=== PATIENT | male | born 1955 | race Caucasian/White ===

== ENCOUNTER 2017-03-06 14:00 | Inpatient (IN) | payer OTHER ==
[2017-03-06 14:39] LABS: Hematocrit 32.8 % (42.0-52.0); Hemoglobin 11.4 gm/dL (13.5-18.0); Mean Cell Volume 78.7 fl (78-100); Mean Corpuscular Hemoglobin 27.3 pg (27-31); Mean Corpuscular Hgb Conc 34.8 g/dl (32-36); Mean Platelet Volume 9.4 fl (6.0-9.5); Neutrophil # 17.6 K/mm3 (1.3-6.0); Neutrophil % 87.5 % (42-75.0); Platelet Count 400 K/mm3 (150-450); Red Blood Count 4.17 M/mm3 (4.7-6.0); Red Cell Distribution Width 13.7 % (11.5-14.0); White Blood Count 20.1 K/mm3 (4.0-10.5)
[2017-03-06 14:53] LABS: ALT 34 U/L (19-67); AST 42 U/L (0-48); Albumin * 2.7 gm/dl (3.4-5.0); Alkaline Phosphatase * 359 U/L (50-170); Anion Gap 14.4 mmol/L (6.8-13.8); BUN/Creatinine Ratio 17.6 (9.0-21.6); Bilirubin, Total 0.4 mg/dL (0.0-1.1); Blood Urea Nitrogen 43 mg/dL (6-23); Ca. Corrected For Albumin 9.5 mg/dL (8.4-10.2); Calcium * 8.8 mg/dL (7.9-10.9); Carbon Dioxide 27.1 mmol/L (24-32.6); Chloride 89 mmol/L (97-106); Glucose * 107 mg/dL (70-110); Potassium 4.5 mmol/L (3.4-4.6); Sodium 126 mmol/L (132-142); Total Protein 7.2 gm/dL (6.2-8.2)
[2017-03-06 14:56] LABS: Troponin I Less than 0.017 ng/ml (0.00-0.10)
[2017-03-06] MEDS ORDERED: ALBUTEROL SULFATE/IPRATROPIUM 3 ML NEBU IH ONE ×2 (14:59→15:02)
[2017-03-06] MEDS ORDERED: predniSONE 20 MG TABLET PO ONE (14:59)
[2017-03-06] MEDS ORDERED: predniSONE 20 MG TABLET ONE (15:02)
--- NOTE | 2017-03-06 16:04 | ERNOTE ---
Dyspnea - General Presenting Symptoms: shortness of breath, wheezing, other - fever and cough Time Seen by Provider: 03/06/17 14:20 Exam Limitations: no limitations - Immun/Allergies/Home Medications Immunizations: IMMUNIZATION HX Immunizations Up to Date Yes History of Influenza Vaccine Yes Hx Pneumococcal Vaccination No Allergies/Adverse Reactions: Allergies pneumonia vaccine Allergy (Severe, Uncoded 03/06/17 14:12) anaphalaxis Home Medications: HOME MEDICATIONS Cyclobenzaprine HCl [Flexeril] 5 mg PO BID PRN 02/06/16 [Last Taken 02/06/16 16: 00] Baclofen 20 mg PO TID PRN 02/07/16 [Last Taken Unknown] Rosuvastatin Calcium [Crestor] 1 tab PO HS 02/07/16 [Last Taken 02/05/16 21:00] amLODIPine BESYLATE [Norvasc] 1 tab PO HS 02/07/16 [Last Taken 02/05/16 21:00] buPROPion HCL [Wellbutrin Xl] 150 mg PO DAILY 02/07/16 [Last Taken 02/05/16 09: 00] - History of Present Illness Narrative: Patient states that for the past 3-4 days he has been having chills, sweats and shaking-like episodes at home that come and go. He states that he feels weak and somewhat washed out. Severity: moderate Treatment ACTIVITIES MANAGER: by patient Initiating event: Reports: unknown Frequency of episodes: Reports: no prior episodes Associated Symptoms-Dyspnea: Reports: fever/chills, cough, wheezing Review of Systems - Review of Systems Constitutional: Present: See HPI, fever, chills EYE: Present: no symptoms reported ENT: Present: no symptoms reported Respiratory: Present: shortness of breath, cough, wheezing Cardiology: Present: no symptoms reported Gastrointestinal/Abdominal: Present: no symptoms reported Genitourinary: Present: no symptoms reported Musculoskeletal: Present: no symptoms reported Skin: Present: no symptoms reported Neurological: Present: no symptoms reported Endocrine: Present: no symptoms reported Hematologic/Lymphatic: Present: no symptoms reported Psych: Present: no symptoms reported - Patient's Past Medical History Patient History - Medical: No pertinent hx, Anemia, Depression, Other Patient History - Cardiac/Respiratory: Hypertension, Hyperlipidemia Patient History - Cancer: No Hx of Cancer Patient History - Surgical Procedures: Back Surgery, Other - splenectomy Patient History - Other: None - Family History Mother Family History - Medical: Family History - Cardiac/Respiratory: Hypertension Father Family History - Medical: Family History - Cardiac/Respiratory: Hypertension - Social History Living Situations: home Psych History: No pertinent hx Smoking Status: Former smoker Alcohol Use: none Drug Use: none - Immunizations Immunizations Up to Date: Yes Hx Pneumococcal Vaccination: No History of Influenza Vaccine: Yes Physical Exam - Physical Exam General Appearance: Present: wd/wn, alert, moderate distress Eye Exam: Normal inspection: bilateral, PERRL: bilateral Ears, Nose, Throat: Present: normal ENT inspection, H, normal pharynx Neck: Present: normal inspection, nontender Respiratory: Present: normal breath sounds, no accessory muscle use, chest nontender, rales - in the left lower lobe, wheezing, pleural rub Cardiovascular/Chest: Present: regular rate, rhythm, no murmur, normal peripheral pulses Gastrointestinal/Abdominal: Present: normal bowel sounds, nontender, nondistended, soft, no organomegaly Rectal Exam: Present: deferred Back Exam: Present: normal inspection, normal range of motion Extremity Exam: Present: normal inspection, non-tender, no edema, normal range of motion Neurological Exam: Present: alert, oriented, normal mood/affect Skin Exam: Present: normal color, warm/dry Lymphatic Exam: Present: no adenopathy ED Progress - Results and Orders Patient's Lab Results:: I have reviewed the patient's lab results. - Vital Signs Patient's Vital Signs:: I have reviewed the patient's vital signs. Vital Signs: Vital Signs 03/06/17 03/06/17 03/06/17 14:07 15:04 15:10 Temperature 38.4 C H 38.4 C H Pulse Rate 98 96 90 Respiratory 21 H 22 H 20 Rate Blood Pressure 196/81 196/81 O2 Sat by Pulse 93 90 90 Oximetry - X-Ray X-Ray #1 X-Ray: chest Interpretation: Reviewed by me - Progress/Reassessment Chief Complaint: Dyspnea Plan - Plan Plan: Patient is somewhat worrisome because of both the splenectomy and the fact that he is having chills, sweating and rigor-like activity. Given that the patient has a 20,000 white count and a left lower lobe pneumonia I believe he merits admission certainly in light of his being hypoxic with sats in the 88-89% initially. Blood cultures were taken and 2 g Rocephin have been ordered for the patient and he'll be admitted to the hospital for further aggressive therapy. Departure Clinical Impression: Hypoxia Pneumonia Qualifiers: Pneumonia type: due to unspecified organism Laterality: left Lung location: lower lobe of lung Qualified Code(s): J18.1 - Lobar pneumonia, unspecified organism - Departure Disposition: [facility] Condition: Fair
[2017-03-06] MEDS ORDERED: NORMAL SALINE 1,000 ML IV ONE ×2 (16:17→18:18)
[2017-03-06] MEDS: AZITHROMYCIN 500 MG in DEXTROSE 5 % IN WATER 250 ML IV SCH ×2 (17:26)
[2017-03-06] MEDS: ALBUTEROL SULFATE/IPRATROPIUM 3 ML NEBU IH SCH (18:58)
--- NOTE | 2017-03-06 19:43 | HP ---
Chief Complaint - Chief Complaint Date of Service: 03/06/17 Time of Service: 19:41 Chief Complaint: SOB/chills/cough History of Present Illness: Pt is a 61 year old male patient of Dr. Kerr who presented to the ER today with complaints of 3-4 days of having chills, sweats, and rigors that come and go. Past medical history is significant for: splenectomy, depression, anemia, HTN, and HLD. He states that he feels weak and somewhat washed out also endorses a cough without any sputum production. Has been taking Aleve at home with occasional relief of symptoms. Denies any recent travel, sick contacts, or other associated symptoms. In the ER he was found to be hypoxic at 88% on RA, chest xray revealed right lower lobe infiltrate. Due to his history of splenectomy, current leukocytosis, and hypoxemia he will be admitted to in patient for further care including IV antibiotics, hemodynamic and laboratory monitoring. Laboratory values on admission were as followed: Laboratory Tests 03/06/17 14:25 WBC 20.1 H Hgb 11.4 L Hct 32.8 L Plt Count 400 pCO2 pO2 HCO3 ABG pH ABG O2 Sat (Measured) Sodium 126 L Potassium 4.5 Chloride 89 L Carbon Dioxide 27.1 Anion Gap 14.4 H BUN 43 H Creatinine 2.44 H Random Glucose 107 Lactic Acid, Venous 0.9 AST 42 ALT 34 Alkaline Phosphatase 359 H Troponin I Less than 0.017 03/06/17 15:47 WBC Hgb Hct Plt Count pCO2 23.7 L pO2 65.1 L HCO3 20.0 L ABG pH 7.54 H ABG O2 Sat (Measured) 95.3 Sodium Potassium Chloride Carbon Dioxide Anion Gap BUN Creatinine Random Glucose Lactic Acid, Venous AST ALT Alkaline Phosphatase Troponin I - Patient's Past Medical History Patient History - Medical: Anemia, Depression, Other Patient History - Cardiac/Respiratory: Hypertension, Hyperlipidemia Patient History - Cancer: No Hx of Cancer Patient History - Surgical Procedures: Back Surgery - 2016, Other - splenectomy Patient History - Other: None - Family History Mother Family History - Medical: Family History - Cardiac/Respiratory: Hypertension Family History - Cancer: Lung Father Family History - Medical: Family History - Cardiac/Respiratory: COPD, Hypertension, Home O2 Use - Social History Living Situations: spouse Abuse History: No History of abuse Psych History: Hx of Depression Smoking Status: Former smoker Have you smoked in the past 12 months: No Do you dip or chew tobacco: No Alcohol Use: other - quit in 1994 Drug Use: none - Immunizations Immunizations Up to Date: Yes Hx Pneumococcal Vaccination: No History of Influenza Vaccine: Yes Review Of Systems (GEN) - Review of Systems Generalized/Overall Review: Present: Chills, Diaphoresis EENTM: Present: No Symptoms Reported Respiratory: Present: Cough, Shortness of Breath Cardiac: Present: No Symptoms Reported Abdominal: Present: No Symptoms Reported Genitourinary: Present: No Symptoms Reported Musculoskeletal: Present: No Symptoms Reported Neurological: Present: No Symptoms Reported Skin: Present: No Symptoms Reported Endocrine: Present: Intolerance to Cold, Intolerance to Heat Immunizations: IMMUNIZATION HX Immunizations Up to Date Yes History of Influenza Vaccine Yes Hx Pneumococcal Vaccination No Allergies/Adverse Reactions: Allergies Allergy/AdvReac Type Severity Reaction Status Date / Time pneumonia vaccine Allergy Severe Uncoded 03/06/17 17:43 Home Medications: HOME MEDICATIONS Rosuvastatin Calcium [Crestor] 1 tab PO HS 02/07/16 [Last Taken 02/05/16 21:00] amLODIPine BESYLATE [Norvasc] 1 tab PO HS 02/07/16 [Last Taken 02/05/16 21:00] buPROPion HCL [Wellbutrin Xl] 150 mg PO DAILY 02/07/16 [Last Taken 02/05/16 09: 00] Exam - Exam Vital Signs: Vital Signs - Last Taken Temp 37.3 C 03/06/17 17:45 Pulse 76 03/06/17 18:58 Resp 20 03/06/17 18:58 BP 127/68 03/06/17 17:45 Pulse Ox 93 2L NC 03/06/17 18:58 Constitutional: Present: Alert, Oriented x3, Cooperative, No distress ENT Exam: Present: hearing grossly normal Eye Exam: bilateral eye: normal inspection, PERRL Back Exam: Present: normal inspection, no CVA tenderness, no vertebral tenderness Respiratory: Present: chest non-tender, no respiratory distress, no accessory muscle use, decreased breath sounds, wheezing Cardiovascular/Chest: Present: normal peripheral pulses, regular rate, rhythm, no chest tenderness, no edema, no gallop, no JVD, no murmur Peripheral Pulses: dorsalis-pedis (R): 2+, dorsalis-pedis (L): 2+, radial (R): 2 +, radial (L): 2+ Abdomen: Present: Normal bowel sounds, soft, nontender, nondistended, no rebound tenderness, no hepatospenomegaly, no masses Extremity: Present: normal range of motion, non-tender, normal inspection, no pedal edema, no calf tenderness, normal capillary refill Skin Exam: Present: normal color, warm/dry, no cyanosis Lymphatic: Present: no adenopathy Neurologic: Present: alert, normal mood/affect, oriented x 3 Appearance: Present: appropriate appearance, appropriate insight, neat, no memory impairment Eye contact: Present: cooperative, good eye contact, normal speech Thoughts: Present: normal thought pattern, no apparent hallucination Diagnostic Studies: Laboratory Tests 03/06/17 03/06/17 03/06/17 14:25 14:25 14:25 WBC 20.1 H Hgb 11.4 L Hct 32.8 L Plt Count 400 pCO2 pO2 HCO3 ABG pH Sodium 126 L Potassium 4.5 Chloride 89 L Carbon Dioxide 27.1 Anion Gap 14.4 H BUN 43 H Creatinine 2.44 H Est GFR (Non-Af Amer) 29 L Lactic Acid, Venous 0.9 Total Bilirubin 0.4 AST 42 ALT 34 Alkaline Phosphatase 359 H Troponin I Less than 0.017 Albumin 2.7 L Influenza Type A Ag Influenza Type B Ag 03/06/17 03/06/17 14:35 15:47 WBC Hgb Hct Plt Count pCO2 23.7 L pO2 65.1 L HCO3 20.0 L ABG pH 7.54 H Sodium Potassium Chloride Carbon Dioxide Anion Gap BUN Creatinine Est GFR (Non-Af Amer) Lactic Acid, Venous Total Bilirubin AST ALT Alkaline Phosphatase Troponin I Albumin Influenza Type A Ag Negative Influenza Type B Ag Negative Chest xray 03/06/17 LLL basilar consolidation with small left-sided pleural effusion Assessment/Plan - Assessment/Plan (1) Hypoxia Assessment: Chest xray with evidence of LLL consolidation and small pleural effusion, leukocytosis noted at 20K. Treatment as below in Pneumonia. Problem: Acute (2) Pneumonia Assessment: Chest xray showing LLL basilar consolidation with small left-sided pleural effusion resulting in hypoxemia. Continue IV antibiotics, PRN and scheduled nebulizers, pulmonary toileting, and supplemental oxygen. -maintain sats >92% -Duonebs scheduled and PRN -IS and cornet -Azythromycin IV -Pending BC and sputum culture -Urine for strep pneumonia -Recheck labs in am Problem: Acute Qualifiers: Pneumonia type: due to unspecified organism Laterality: left Lung location: lower lobe of lung Qualified Code(s): J18.1 - Lobar pneumonia, unspecified organism (3) HLD (hyperlipidemia) Assessment: Continue Crestor Problem: Chronic (4) HTN (hypertension) Assessment: Continue Norvasc as prescribed at home. VS Q6H Problem: Chronic (5) Depression Assessment: Continue wellbutrin as prescribed at home Problem: Chronic
[2017-03-06] MEDS: ROSUVASTATIN CALCIUM 10 MG TABLET PO SCH (20:32)
[2017-03-06] MEDS: amLODIPine BESYLATE 5 MG TABLET PO SCH (20:32)
[2017-03-06] MEDS: ENOXAPARIN SODIUM 30 MG/0.3 ML SYRG SC SCH (20:32)
[2017-03-07] MEDS: ALBUTEROL SULFATE/IPRATROPIUM 3 ML NEBU IH SCH ×4 (02:25→22:48)
[2017-03-07 06:05] LABS: Hematocrit 35.7 % (42.0-52.0); Hemoglobin 11.8 gm/dL (13.5-18.0); Mean Cell Volume 79.9 fl (78-100); Mean Corpuscular Hemoglobin 26.4 pg (27-31); Mean Corpuscular Hgb Conc 33.1 g/dl (32-36); Mean Platelet Volume 9.4 fl (6.0-9.5); Platelet Count 454 K/mm3 (150-450); Red Blood Count 4.47 M/mm3 (4.7-6.0); Red Cell Distribution Width 13.6 % (11.5-14.0)
[2017-03-07 06:12] LABS: Total Cells Counted 100
[2017-03-07 06:24] LABS: Albumin * 2.4 gm/dl (3.4-5.0); Anion Gap 13.8 mmol/L (6.8-13.8); BUN/Creatinine Ratio 17.2 (9.0-21.6); Bilirubin, Total 0.2 mg/dL (0.0-1.1); Ca. Corrected For Albumin 10.3 mg/dL (8.4-10.2); Calcium * 9.3 mg/dL (7.9-10.9); Carbon Dioxide 24.7 mmol/L (24-32.6); Potassium 4.5 mmol/L (3.4-4.6); Total Protein 7.4 gm/dL (6.2-8.2)
[2017-03-07 06:54] LABS: Band 17 % (0-2.0); Lymphocyte 3 % (20-51); Monocyte 3 % (0-9); Neutrophil 77 % (42-75); Neutrophil # 20.8 K/mm3 (1.3-6.0); Poikilocytosis 1+
[2017-03-07 06:55] LABS: Dohle Bodies 1+; Platelet Estimate Increased (NORMAL); Toxic Granulation 2+
[2017-03-07] MEDS ORDERED: buPROPion HCL 150 MG TAB.SR.24H PO SCH (09:00)
--- NOTE | 2017-03-07 14:16 | PN ---
Subjective - Date and Time Seen Date: 03/07/17 Time: 14:10 Subjective Narrative: patient seen at 0820 hrs. Patient feels better. Weaned off oxygen. Feels ready to go home. Ambulating well. Appetite good . no cough. Objective - Review of Systems Generalized/Overall Review: Denies: Weakness, Chills, Fever, Malaise Respiratory: Denies: Cough, Shortness of Breath Cardiac: Denies: Chest Pain, Edema, Palpitations - Vitals Vitals: Vital Signs Temp 36.4 C L 03/07/17 11:22 Pulse 67 03/07/17 11:22 Resp 16 03/07/17 11:22 BP 125/62 03/07/17 11:22 Pulse Ox 92 03/07/17 11:22 - Abnormal Lab Findings Abnormal Lab Findings: Laboratory Tests 03/06/17 03/07/17 14:25 05:55 WBC 20.1 H 27.0 H D Hgb 11.4 L 11.8 L Hct 32.8 L 35.7 L Plt Count 400 454 H Neutrophils % (Manual) 77 H Band Neuts % (Manual) 17 H 03/06/17 03/07/17 14:25 05:55 Plasma Sodium 126 L 133 Potassium 4.5 4.5 Chloride 89 L 98 Carbon Dioxide 27.1 24.7 BUN 43 H 41 H Creatinine 2.44 H 2.39 H Est GFR (Non-Af Amer) 29 L 30 L Alkaline Phosphatase 359 H 363 H - EKG/Xray Findings Interpretation: Reviewed by me - Exam Constitutional: Present: Obese - alert and oriented x3, in NAD on RA Neck: Present: normal inspection, trachea midline Respiratory: Present: decreased breath sounds - all throughtout lungs. Absent: accessory muscle use Cardiovascular/Chest: Present: regular rate, rhythm. Absent: tachycardia Abdomen: Present: Normal bowel sounds, soft, nontender, obese Extremity: Present: normal inspection, no pedal edema Skin Exam: Present: normal color, warm/dry Eye contact: Present: cooperative, good eye contact, normal speech Assessment/Plan Plan Narrative: 1. Left lower lobe pneumonia: Patient presented with fever, chills , myalgias and hypoxia of 85% on RA. Currently on ceftriaxone 2 g IV daily and azithromycin 500 mg IV daily. Blood cultures are pending. Urine for strep pneumoniae and Legionella pending. Given prednisone 60 mg PO in ER. 2. S/P splenectomy: Due to for a blunt force trauma at place of work approximately 5 years ago. History of having a reaction to pneumococcal vaccine given at [facility] 3. CKD stage III/1V: BUN/CR 30/1.4 with GFR 56 ml/min [ 07/29/2013]; 34/2.29 GFR 31ml/min [ 11/15/16]. no H/O prior work up. 4. Other chronic medical conditions: HTN, anxiety and depression, HLD, obesity[BMI 33.5], h/o prior tobacco abuse reviewed and stable.
[2017-03-07] MEDS: AZITHROMYCIN 500 MG in DEXTROSE 5 % IN WATER 250 ML IV SCH ×2 (16:28)
[2017-03-07] MEDS: ENOXAPARIN SODIUM 30 MG/0.3 ML SYRG SC SCH (20:10)
[2017-03-07] MEDS: amLODIPine BESYLATE 5 MG TABLET PO SCH (20:11)
[2017-03-07] MEDS: ROSUVASTATIN CALCIUM 10 MG TABLET PO SCH (20:11)
[2017-03-08] MEDS: ALBUTEROL SULFATE/IPRATROPIUM 3 ML NEBU IH SCH (06:03)
[2017-03-08 06:19] LABS: Hematocrit 33.3 % (42.0-52.0); Hemoglobin 11.3 gm/dL (13.5-18.0); Mean Cell Volume 79.5 fl (78-100); Mean Corpuscular Hgb Conc 33.9 g/dl (32-36); Mean Platelet Volume 9.7 fl (6.0-9.5); Platelet Count 507 K/mm3 (150-450); Red Blood Count 4.19 M/mm3 (4.7-6.0); Red Cell Distribution Width 13.9 % (11.5-14.0); White Blood Count 22.9 K/mm3 (4.0-10.5)
[2017-03-08 06:23] LABS: Albumin * 2.4 gm/dl (3.4-5.0); Anion Gap 15.1 mmol/L (6.8-13.8); BUN/Creatinine Ratio 20.5 (9.0-21.6); Bilirubin, Total 0.2 mg/dL (0.0-1.1); Ca. Corrected For Albumin 10.1 mg/dL (8.4-10.2); Calcium * 9.1 mg/dL (7.9-10.9); Carbon Dioxide 25.1 mmol/L (24-32.6); Potassium 4.2 mmol/L (3.4-4.6); Total Protein 7.1 gm/dL (6.2-8.2)
[2017-03-08 06:39] LABS: Monocyte 2 % (0-9); Neutrophil 75 % (42-75)
[2017-03-08 06:41] LABS: Band 14 % (0-2.0); Howell-Jolly Bodies 1+; Immature Granulocyte 1 (0-1); Lymphocyte 8 % (20-51); Neutrophil # 17.2 K/mm3 (1.3-6.0); Platelet Estimate Increased (NORMAL); Polychromasia 1+; Total Cells Counted 100
--- NOTE | 2017-03-08 10:46 | DS ---
(1) Left lower lobe pneumonia Problem: Acute Qualifiers: Pneumonia type: due to unspecified organism Qualified Code(s): J18.1 - Lobar pneumonia, unspecified organism (2) Status post splenectomy Diagnosis(s): in 2011 due to blunt force trauma Problem: Chronic (3) CKD (chronic kidney disease) Diagnosis(s): III/IV Problem: Chronic (4) HLD (hyperlipidemia) Problem: Chronic (5) HTN (hypertension) Diagnosis(s): increase crestor from 10 mg to 20 mg PO daily for LDL 104 mg/dl. Problem: Chronic Qualifiers: Hypertension type: unspecified Qualified Code(s): I10 - Essential (primary ) hypertension Description of Stay: DATE OF ADMISSION: 03/06/17. DATE OF DISCHARGE: 03/08/17. DIAGNOSTICS: NONE. DISCHARGE SUMMARY : Kwaku is a 61 year old male patient of Dr. Kerr who has a history of splenectomy, CKD- stage III/IV, depression, anemia, HTN, and HLD. He presented to the ER on 03/06/17 with complaints of chills, sweats, rigors, and cough for 3 days. In the ER he was found to be hypoxic at 88% on RA and chest xray showed left lower lobe infiltrate. He was then admitted for IV antibiotics and and laboratory monitoring. Patient was given CTX 2g IV daily and azithromycin 500 mg IV daily after blood cultures were done Patient showed significant improvement the next day. WBC remained elevated on 03/07/17 mostly due to the fact that he was given oral prednisone 60 mg in ER. Patient was discharged in a stable condition today because he was clinically better. Patient to receive 2 days IV antibiotics through the annex. [ to complete a total of five days]. [Total time spent in discussing options, prognosis and examining the patient 15 minutes. Total time spent in reconciliation of medications, preparation and dictation of discharge summary 20 minutes. Total time spent 35 minutes. Procedures Performed: none Results and Findings: Laboratory Tests 03/06/17 03/07/17 03/08/17 14:25 05:55 07:00 WBC 20.1 H 27.0 H D 22.9 H Hgb 11.4 L 11.8 L 11.3 L Hct 32.8 L 35.7 L Plt Count 400 454 H 507 H Neutrophils % (Manual) 77 H 75 Band Neuts % (Manual) 17 H 14 H 03/06/17 03/07/17 03/08/17 14:25 05:55 06:00 Plasma Sodium 126 L 133 137 Potassium 4.5 4.5 4.2 Chloride 89 L 98 101 Carbon Dioxide 27.1 24.7 25.1 BUN 43 H 41 H 46 H Creatinine 2.44 H 2.39 H 2.24 H Est GFR (Non-Af Amer) 29 L 30 L 32 L Random Glucose 107 146 H D 98 D Calcium Adj for Albumin 9.5 10.3 H 10.1 Total Bilirubin 0.4 0.2 0.2 AST 42 32 33 ALT 34 43 48 Alkaline Phosphatase 359 H 363 H 313 H Total Protein 7.2 7.4 7.1 Albumin 2.7 L 2.4 L 2.4 L 03/06/17 03/06/17 14:25 14:35 Lactic Acid, Venous 0.9 Troponin I Less than 0.017 Influenza Type A Ag Negative Influenza Type B Ag Negative CXR 03/06/2017: Impression: 1. Left lower lobe basilar consolidation with small left-sided pleural effusion noted, most likely pneumonia. Recommend radiographic follow-up to document resolution as underlying pulmonary mass could not be entirely ruled out. 2. Mild cardiomegaly. Discharge Disposition: Home self care Disposition: Home self-care Condition: Undetermined Discharge Diet: Low salt, Low fat/chol, High Fiber Referrals: Eric Kerr MD [Primary Care Provider] - Problem Oriented Discharge Instructions to Patient/Family: Community-Acquired Pneumonia, Adult, [id number] Additional Patient Instructions (free text): Patient to get IV antibiotics through the annex from 03/09/17 for 2 days at 11: 30am. horse farm manager to arrange it. Follow up with Dr. Kerr in 10 days on 03-21-17 @ 10:45 am., earlier if s/s worsen. Repeat Chest Xray in 4-6 weeks. Follow up with Nephrology after US of kidneys, spep upep etc are done. Avoid all NSAIDS. Appointment for [facility] Retroperitoneal Complete is on 03-29-17 @ 8:00am. Prescriptions (Any new or edited meds): Azithromycin [Zithromax] 500 mg IV DAILY #2 vial Ceftriaxone Sodium [Ceftriaxone] 2 gm IV DAILY #2 vial.port Rosuvastatin Calcium [Crestor] 20 mg PO DAILY #90 tablet Complete Home Medications List: Complete Home Medication List: amLODIPine BESYLATE [Norvasc] 1 tab PO HS 02/07/16 buPROPion HCL [Wellbutrin Xl] 150 mg PO DAILY 02/07/16 Azithromycin [Zithromax] 500 mg IV DAILY #2 vial 03/08/17 Ceftriaxone Sodium [Ceftriaxone] 2 gm IV DAILY #2 vial.port 03/08/17 Rosuvastatin Calcium [Crestor] 20 mg PO DAILY #90 tablet 03/08/17 Amb Orders for Discharge: Microalbumin, Random Urine Time Frame: 2 Weeks, Location: Determined By Patient Protein Elect Random Urine Time Frame: 2 Weeks, Location: Determined By Patient Protein Electrophoresis Serum Time Frame: 2 Weeks, Location: Determined By Patient Chest PA & Lateral * Time Frame: 04/12/17, Location: Determined By Patient US Retroperitoneal Complete * Time Frame: 3 Weeks, Location: Determined By Patient
[2017-03-08] MEDS: AZITHROMYCIN 500 MG in DEXTROSE 5 % IN WATER 250 ML IV SCH ×2 (11:14)
[2017-03-08 14:34] VITALS: BP 137/83
[2017-03-08] MEDS ORDERED: buPROPion HCL 150 MG TAB.SR.24H PO SCH (21:00)
== END 2017-03-08 14:47 | disposition home or self-care (01) | DRG 195 ==
LOC: ER 14:00 → MS 15:55
PROVIDERS: ADMIT Internal Medicine; ATTEND Internal Medicine
PROC: 4A033R1 Measurement of Arterial Saturation, Peripheral, Percutaneous Approach (ICD-10-PCS; principal; 2017-03-06)
DX: J18.1 Lobar pneumonia, unspecified organism (principal); R09.02 Hypoxemia; E78.5 Hyperlipidemia, unspecified; F32.9 Major depressive disorder, single episode, unspecified; I12.9 Hypertensive chronic kidney disease with stage 1 through stage 4 chronic kidney disease, or unspecified chronic kidney disease; N18.3 Chronic kidney disease, stage 3 (moderate); Z90.81 Acquired absence of spleen; Z87.891 Personal history of nicotine dependence